=== PATIENT | male | born 1950 | race Asian ===

== ENCOUNTER 2021-03-01 13:25 | Inpatient (IN) | payer MEDICARE, OTHER ==
[~2021-03-01] VITALS: Ht 152.4 cm; Wt 54.4 kg
--- NOTE | 2021-03-01 13:27 | NUR ---
JASON Main FROM A DIALYSIS CENTER WHERE HE HAD A NEAR SYNCOPE EPISODE. PT PORT IS LOCATED ON HIS RIGHT CHEST. PT HAS A NASAL CANNULA BREATHING IS EVEN AND UNLABORED. PT ATTCHED TO MONITOR . DR VALERA AT BEDSIDE.
--- NOTE | 2021-03-01 14:31 | NUR ---
Ta kim in [facility] - 03/01/21 at 1518 by [facility] NURSING SUP CALLED FOR MIDLINE
[2021-03-01 14:34] LABS: BASOPHILS % (AUTO) 0.1 % (0.0-2.0); HEMATOCRIT 26 % (39-51); HEMOGLOBIN 8.7 g/dL (13.5-17.5); LYMPHOCYTES # (AUTO) 0.6 K/uL (0.8-4.8); LYMPHOCYTES % (AUTO) 5.5 % (20.0-44.0); MEAN CORPUSCULAR HGB CONC 33 g/dl (31.0-36.0); MEAN CORPUSCULAR VOLUME 98 fL (80-96); MONOCYTES # (AUTO) 1.1 K/uL (0.1-1.30); MONOCYTES % (AUTO) 9.5 % (2.0-12.0); NEUTROPHILS # (AUTO) 9.9 K/uL (1.8-8.9); NEUTROPHILS % (AUTO) 84.9 % (43.0-81.0); PLATELET COUNT (AUTO) 212 K/uL (150-450); WHITE BLOOD COUNT (AUTO) 11.7 K/uL (4.3-11.0)
--- NOTE | 2021-03-01 14:35 | NUR ---
PT TAKEN TO CT
[2021-03-01 14:45] LABS: CALCIUM, SERUM 8.1 mg/dL (8.5-10.1); CARBON DIOXIDE 32 mmol/L (21-32); CHLORIDE 98 mmol/L (98-107); CREATININE 5.3 mg/dL (0.6-1.3); GLUCOSE 204 mg/dL (74-106); SODIUM SERUM 140 mmol/L (136-145); UREA NITROGEN, BLOOD 61 mg/dL (7-18)
--- NOTE | 2021-03-01 14:51 | NUR ---
NURSING SUP CALLED FOR MIDLINE
[2021-03-01] MEDS ORDERED: NA P133E RC (14:55)
[2021-03-01] MEDS ORDERED: ONDA4TAB5 PO (14:55)
[2021-03-01] MEDS ORDERED: AMLO2.5T2 PO (14:55)
[2021-03-01] MEDS ORDERED: SODI650T PO (14:55)
[2021-03-01] MEDS ORDERED: POLY17PO4 PO (14:55)
[2021-03-01] MEDS ORDERED: ATOR10TA PO (14:55)
[2021-03-01] MEDS ORDERED: INSU100V11 SQ (14:55)
[2021-03-01] MEDS ORDERED: SENN-261 PO (14:55)
[2021-03-01] MEDS ORDERED: ACET-868 PO (14:55)
[2021-03-01] MEDS ORDERED: SEVE800T8 PO (14:55)
[2021-03-01] MEDS ORDERED: AMIN30LI2 PO (14:55)
[2021-03-01] MEDS ORDERED: FOLI0.8T2 PO (14:55)
[2021-03-01] MEDS ORDERED: ACET-2605 PO (14:55)
[2021-03-01] MEDS ORDERED: GABA-532 PO (14:55)
[2021-03-01] MEDS ORDERED: LACT10SO3 PO (14:55)
[2021-03-01] MEDS ORDERED: MELA3TAB41 PO (14:55)
[2021-03-01] MEDS ORDERED: PANT40TA2 PO (14:55)
[2021-03-01] MEDS ORDERED: CLOP75TA15 PO (14:55)
[2021-03-01] MEDS ORDERED: CHOL100062 PO (14:55)
[2021-03-01] MEDS ORDERED: INSU100V10 SQ (14:55)
[2021-03-01] MEDS ORDERED: GLUC1KIT IM (14:55)
[2021-03-01] MEDS ORDERED: TRAZ-182 PO (14:55)
[2021-03-01] MEDS ORDERED: DOXA2TAB2 PO (14:55)
[2021-03-01] MEDS ORDERED: HYDR-4075 PO (14:55)
[2021-03-01] MEDS ORDERED: NUT.237L67 PO (14:55)
[2021-03-01] MEDS ORDERED: CARV12.52 PO (14:55)
[2021-03-01] MEDS ORDERED: DEXT38GE12 PO (14:55)
[2021-03-01] MEDS ORDERED: HEPA50007 SQ (14:55)
[2021-03-01] MEDS ORDERED: DOCU-141 PO (14:55)
[2021-03-01] MEDS ORDERED: ASPI-1169 PO (14:55)
[2021-03-01] MEDS ORDERED: NITR0.4T48 SL (14:55)
[2021-03-01] MEDS ORDERED: VALS80TA2 PO (14:55)
[2021-03-01] MEDS ORDERED: FOLI0.4T6 PO (14:55)
[2021-03-01] MEDS ORDERED: IPRA3AMP23 IH (14:55)
[2021-03-01] MEDS ORDERED: BISA10SU11 RC (14:55)
[2021-03-01] MEDS ORDERED: MAGNESIUM HYDROXIDE 30 ML UDC PO PRN (18:00)
[2021-03-01] MEDS ORDERED: ONDANSETRON HCL/PF 4 MG/2 ML VIAL IVP PRN (18:00)
[2021-03-01] MEDS ORDERED: ACETAMINOPHEN 325 MG TABLET PO PRN (18:00)
[2021-03-01] MEDS ORDERED: MAG HYDROX/AL HYDROX/SIMETH 30 ML UDC PO PRN (18:00)
[2021-03-01] MEDS: SODIUM BICARBONATE 650 MG TABLET PO SCH ×2 (18:30→21:16)
[2021-03-01] MEDS: SEVELAMER CARBONATE 800 MG POWD.PACK PO SCH (18:30)
[2021-03-01] MEDS ORDERED: DEXTROSE 50%-WATER 50 ML DISP.SYRIN IV PRN (18:30)
[2021-03-01] MEDS: SENNOSIDES 8.6 MG TABLET PO SCH (18:30)
--- NOTE | 2021-03-01 18:37 | NUR ---
PT RESTING COMFORTABLY IN BED, EASY TO AROUSE.
--- NOTE | 2021-03-01 18:44 | NUR ---
REPORT GIVEN TO NURSE JUARES FOR ASHLEY
--- NOTE | 2021-03-01 18:50 | NUR ---
ULTRASOUND AT BEDSIDE
--- NOTE | 2021-03-01 19:11 | NUR ---
Ta kim in [facility] - 03/01/21 at 1911 by CAMILLE THE PATIENT IS TRANSFERED TO [facility] IN STABLE CONDITON AND PER ACLS POLICY.
[2021-03-01 20:00] VITALS: BP 160/73
--- NOTE | 2021-03-01 20:00 | NUR ---
METAL FABRICATING SHOP HELPER NOTES PT RECEIVED IN ROOM VIA [employer]. PT AWAKE A/O X 2-3 ABLE TO MAKE NEEDS KNOWN. PT NOTED WITH IV ACCESS ON THE LFA #20G.PT HAS RIGHT CHEST WALL HD ACCESS. PT ON 2L VIA NASAL CANNULA O2 SAT AT 99% NO RESPIRATORY DISTRESS NOTED AT THIS TIME. MO PAIN NOTED OR REPORTED AT THIS TIME. PT NOTED WITH BILATERAL LOWER EXTREMITY AMPUTATION. SKIN DRY WARM NO DISCOLORATION NOTED. SKIN ASSESSMENT DONE NO OPEN SKIN NOTED. PT BELONGINGS CHEKED NOTED PT HAS HIS OWN WHEEL CHAIR AT BEDSIDE WITH HIS BAG. PT ALS HAS A WATCH ON HIS LEFT WRIST ONE T SHIT AND A PAIR PANTS.PT ORIENTED TO ROOM AND UNIT. CALL LIGHT PLACED WITHIN REACH. WILL CONTINUE TO MONITOR. Addendum: 03/01/21 at 2318 by ENA EDWARDS RN PT NOW HAS SULLY MIDLINE 18G AND IS ON THE TELE MONITOR NSR 70S
--- NOTE | 2021-03-01 20:04 | NUR ---
PT TRANSFERRED TO 3W PER ACLS PROTOCOL.
[2021-03-01 20:10] VITALS: BP 150/72
[2021-03-01] MEDS: HEPARIN SODIUM, PORCINE 5000 UNITS/1 ML VIAL SQ SCH (21:00)
[2021-03-01] MEDS: CARVEDILOL 12.5 MG TABLET PO SCH (21:16)
[2021-03-01] MEDS: ATORVASTATIN 10 MG TABLET PO SCH (21:32)
[2021-03-01] MEDS: DOXAZOSIN MESYLATE (1 MG) 1 MG TABLET PO SCH (21:32)
[2021-03-01] MEDS: TRAZODONE 50 MG TABLET PO SCH (21:33)
[2021-03-01] MEDS: INSULIN REGULAR, HUMAN 100 UNIT/ML 3 ML VIAL SQ PRN (22:09)
[2021-03-01] MEDS: BLOOD SUGAR DIAGNOSTIC 1 EACH STRIP IN SCH (22:09)
--- NOTE | 2021-03-02 03:33 | NUR ---
television repair teacher notes pt trasnfered to [facility] per acls protocol. pt asleep easily woken up stable.
--- NOTE | 2021-03-02 03:40 | NUR ---
RN NOTES, RECEIVED PATIENT FROM 3 VIA BED ACCOMPANIED BY 3 [id number], AND INVESTIGATION DIVISION CAPTAIN, PT IN STABLE CONDITION AND VITAL SIGNS STABLE, PT WITH EDDI MIDLINE AND AND RIGHT AC IN PLACE PATENT AND INTACT, RCW HD CATHETER IN PLACE, WILL CONT TO MONITOR CLOSELY.
[2021-03-02 04:00] VITALS: BP 125/38
--- NOTE | 2021-03-02 05:00 | NUR ---
RN NOTES, COVID SWAB COLLECTED AND SENT IT TO LAB.
--- NOTE | 2021-03-02 07:19 | NUR ---
RN NOTES, PATIENT ASLEEP AROUSES TO VERBAL STIMULI, AT 1LPM VIA NC WITH O2 WNL, NO SOB/ACUTE DISTRESS NOTES, NO SIGNIFICANT CHANGE IN CONDITION DURING THE NIGHT, WITH EDDI MIDLINE AND AND RIGHT AC IN PLACE PATENT AND INTACT, RCW HD CATHETER IN PLACE, WILL ENDORSE CONTINUITY OF CARE TO ONCOMING NURSE.
--- NOTE | 2021-03-02 07:57 | NUR ---
RN OPENING NOTES RECEIVED PATIENT ASLEEP AROUSES TO VERBAL STIMULI. PATIENT ON 1L OF O2 VIA NC, NO SOB OR ANY DISTRESS NOTED. WITH EDDI MIDLINE AND AND RIGHT AC IN PLACE PATENT AND INTACT, RCW HD CATHETER IN PLACE. ALL SAFETY MEASURES IMPLEMENTED. BED LOCKED, ON LOWEST POSITION WITH SIDERAILS UP X 2. CALL LIGHT WITHIN REACH. WILL CONTINUE TO MONITOR.
[2021-03-02] MEDS: GABAPENTIN 300 MG CAPSULE PO SCH ×3 (08:19→16:12)
[2021-03-02] MEDS: VIT B CMPLX 3/FA/VIT C/BIOTIN 1 TAB TABLET PO SCH (08:19)
[2021-03-02] MEDS: SENNOSIDES 8.6 MG TABLET PO SCH ×2 (08:20→16:12)
[2021-03-02] MEDS: SEVELAMER CARBONATE 800 MG POWD.PACK PO SCH ×3 (08:20→18:06)
[2021-03-02] MEDS: VALSARTAN 80 MG TABLET PO SCH (08:20)
[2021-03-02] MEDS: ASPIRIN 81 MG TAB.CHEW PO SCH (08:21)
[2021-03-02] MEDS: CLOPIDOGREL BISULFATE 75 MG TABLET PO SCH (08:21)
[2021-03-02] MEDS: AMLODIPINE BESYLATE 2.5 MG TABLET PO SCH (08:21)
[2021-03-02] MEDS: SODIUM BICARBONATE 650 MG TABLET PO SCH ×4 (08:21→22:10)
[2021-03-02] MEDS: CARVEDILOL 12.5 MG TABLET PO SCH ×2 (08:22→16:14)
[2021-03-02] MEDS: CHOLECALCIFEROL 1,000 UNIT TABLET (VIT D3) PO SCH (08:22)
[2021-03-02] MEDS: HEPARIN SODIUM, PORCINE 5000 UNITS/1 ML VIAL SQ SCH ×2 (08:23→21:00)
[2021-03-02] MEDS: DOCUSATE SODIUM 100 MG CAPSULE PO SCH (08:24)
[2021-03-02] MEDS: PANTOPRAZOLE 40 MG TABLET.DR PO SCH (08:24)
[2021-03-02] MEDS: BLOOD SUGAR DIAGNOSTIC 1 EACH STRIP IN SCH ×4 (08:37→22:23)
[2021-03-02] MEDS: NEPRO VAN 237 ML CAN PO SCH (09:05)
[2021-03-02 09:25] LABS: BASOPHILS % (AUTO) 0.7 % (0.0-2.0); EOSINOPHILS % (AUTO) 0.7 % (0.0-6.0); HEMATOCRIT 22 % (39-51); HEMOGLOBIN 7.2 g/dL (13.5-17.5); MEAN CORPUSCULAR HGB CONC 34 g/dl (31.0-36.0); MEAN CORPUSCULAR VOLUME 99 fL (80-96); MONOCYTES # (AUTO) 0.6 K/uL (0.1-1.30); MONOCYTES % (AUTO) 10.4 % (2.0-12.0); NEUTROPHILS # (AUTO) 4.2 K/uL (1.8-8.9); NEUTROPHILS % (AUTO) 71.2 % (43.0-81.0); PLATELET COUNT (AUTO) 192 K/uL (150-450); RED BLOOD CELL COUNT(AUTO) 2.19 MIL/uL (4.5-6.0); WHITE BLOOD COUNT (AUTO) 5.8 K/uL (4.3-11.0)
[2021-03-02 10:08] LABS: CHOLESTEROL 139 mg/dL (<200); HDL CHOLESTEROL 41 mg/dL (40-60); LDL 56 mg/dL (0-99); TRIGLYCERIDES 380 mg/dL (30-150)
[2021-03-02] MEDS: INSULIN REGULAR, HUMAN 100 UNIT/ML 3 ML VIAL SQ PRN ×3 (12:44→22:25)
[2021-03-02] MEDS: EPOETIN ALFA-EPBX 10,000 UNIT/ML VIAL SQ SCH (15:07)
[2021-03-02 17:50] LABS: CALCIUM, SERUM 7.4 mg/dL (8.5-10.1); CARBON DIOXIDE 29 mmol/L (21-32); CHLORIDE 97 mmol/L (98-107); GLUCOSE 283 mg/dL (74-106); MAGNESIUM 2.4 mg/dL (1.8-2.4); POTASSIUM 4.4 mmol/L (3.5-5.1); SODIUM SERUM 138 mmol/L (136-145)
[2021-03-02 17:57] LABS: CREATININE 7.8 mg/dL (0.6-1.3); UREA NITROGEN, BLOOD 97 mg/dL (7-18)
--- NOTE | 2021-03-02 18:00 | NUR ---
RN NOTE NOTIFIED ALVARADO VILLAVICENCIO BUSINESS MACHINE OPERATOR OF CRITICAL LABS BUN 97 AND CREATININE 7.8
--- NOTE | 2021-03-02 18:34 | NUR ---
RN CLOSING NOTES PATIENT REMAINS IN STABLE CONDITION THROUGHOUT SHIFT. AT 1LPM VIA NC WITH O2 WNL, NO SOB OR RESPIRATORY DISTRESS NOTED. WITH EDDI MIDLINE AND AND RIGHT AC IN PLACE PATENT AND INTACT, RCW HD CATHETER IN PLACE. ALL DUE MEDS GIVEN, NO ADVERSE REACTIONS NOTED. KEPT DRY, CLEAN AND COMFORTABLE. ALL SAFETY MEASURES IN PLACE. BED LOCKED, IN LOWEST POSITION WITH SIDERAILS UP. CALL LIGHT WITHIN REACH. WILL ENDORSE TO ROTARY FURNACE OPERATOR NURSE FOR CONTINUITY OF CARE.
--- NOTE | 2021-03-02 19:45 | NUR ---
RN OPENING NOTES RECEIVED PATIENT IN BED ALERT, ORIENTED X3, VERBALLY RESPONSIVE. ON O2 1L/M VIA NC WITH O2 SAT 97%. NO SOB, NO CHEST CONGESTION, BREATHING EVEN AND UNLABORED. IV ACCESS ON EDDI MIDLINE AND AND RIGHT AC IN PLACE PATENT AND INTACT, NO S/S OF INFILTRATIONS. RT UPPER CHEST W/ PERMA CATH INTACT AND PATENT. NO BLEEDING. ALL SAFETY MEASURES IN PLACE. BED IN LOWEST POSITION AND LOCKED. SIDE RAILS UP. CALL LIGHT WITHIN REACH. WILL CONTINUE TO MONITOR FOR ANY CHANGES.
[2021-03-02 20:00] VITALS: BP 137/73
[2021-03-02] MEDS: ATORVASTATIN 10 MG TABLET PO SCH (22:10)
[2021-03-02] MEDS: DOXAZOSIN MESYLATE (1 MG) 1 MG TABLET PO SCH (22:11)
[2021-03-02] MEDS: TRAZODONE 50 MG TABLET PO SCH (22:11)
--- NOTE | 2021-03-02 22:30 | NUR ---
RN NOTES: BLOOD SUGAR 123. NO COVERAGE GIVEN. NO S/S OF HYPER/HYPOGLYCEMIA. WILL CONTINUE TO MONITOR
[2021-03-03] VITALS: BP 133/73
[2021-03-03] MEDS ORDERED: EPOETIN ALFA (10,000 UNIT) 10,000 UNIT/ML VIAL IV SCH
[2021-03-03 04:00] VITALS: BP 161/66
--- NOTE | 2021-03-03 06:46 | NUR ---
RN CLOSING NOTES PATIENT IN BED SLEEPING, BUT AROUSABLE, ALERT, ORIENTED X3, VERBALLY RESPONSIVE. ON O2 1L/M VIA NC WITH O2 SAT 95%. BREATHING EVEN AND UNLABORED. IV ACCESS ON EDDI MIDLINE AND AND RIGHT AC IN PLACE PATENT AND INTACT, NO S/S OF INFILTRATIONS. RT UPPER CHEST W/ HD CATH INTACT AND PATENT. NO BLEEDING NOTED. DUE MEDS GIVEN PER ORDER AND TOLERATED WELL. ALL SAFETY MEASURES IN PLACE. BED IN LOWEST POSITION AND LOCKED. SIDE RAILS UP. CALL LIGHT WITHIN REACH. WILL ENDORSE TO MORNING SHIFT NURSE.
[2021-03-03] MEDS: BLOOD SUGAR DIAGNOSTIC 1 EACH STRIP IN SCH ×4 (07:30→22:33)
--- NOTE | 2021-03-03 07:30 | NUR ---
RN OPENING NOTE PATIENT IN BED SLEEPING, BUT AROUSABLE, ALERT, ORIENTED X1, VERBALLY RESPONSIVE. ON O2 1L/M VIA NC WITH O2 SAT 95%. BREATHING EVEN AND UNLABORED. IV ACCESS ON EDDI MIDLINE AND AND RIGHT AC IN PLACE PATENT AND INTACT, NO S/S OF INFILTRATIONS. RT UPPER CHEST W/ HD CATH INTACT AND PATENT. NO BLEEDING NOTED. ALL SAFETY MEASURES IN PLACE. BED IN LOWEST POSITION AND LOCKED. SIDE RAILS UP. CALL LIGHT WITHIN REACH.
[2021-03-03 08:00] VITALS: BP 180/57
[2021-03-03] MEDS: VIT B CMPLX 3/FA/VIT C/BIOTIN 1 TAB TABLET PO SCH (08:34)
[2021-03-03] MEDS: CHOLECALCIFEROL 1,000 UNIT TABLET (VIT D3) PO SCH (08:34)
[2021-03-03] MEDS: DOCUSATE SODIUM 100 MG CAPSULE PO SCH (08:34)
[2021-03-03] MEDS: ASPIRIN 81 MG TAB.CHEW PO SCH (08:35)
[2021-03-03] MEDS: VALSARTAN 80 MG TABLET PO SCH (08:35)
[2021-03-03] MEDS: SEVELAMER CARBONATE 800 MG POWD.PACK PO SCH ×3 (08:35→17:19)
[2021-03-03] MEDS: GABAPENTIN 300 MG CAPSULE PO SCH ×3 (08:35→16:43)
[2021-03-03] MEDS: SENNOSIDES 8.6 MG TABLET PO SCH ×2 (08:35→16:43)
[2021-03-03] MEDS: AMLODIPINE BESYLATE 2.5 MG TABLET PO SCH (08:36)
[2021-03-03] MEDS: CLOPIDOGREL BISULFATE 75 MG TABLET PO SCH (08:36)
[2021-03-03] MEDS: CARVEDILOL 12.5 MG TABLET PO SCH ×2 (08:36→16:43)
[2021-03-03] MEDS: PANTOPRAZOLE 40 MG TABLET.DR PO SCH (08:36)
[2021-03-03] MEDS: SODIUM BICARBONATE 650 MG TABLET PO SCH ×4 (08:36→22:33)
[2021-03-03] MEDS: HEPARIN SODIUM, PORCINE 5000 UNITS/1 ML VIAL SQ SCH ×2 (08:39→22:38)
[2021-03-03] MEDS: NEPRO VAN 237 ML CAN PO SCH (08:41)
[2021-03-03] MEDS: INSULIN REGULAR, HUMAN 100 UNIT/ML 3 ML VIAL SQ PRN ×3 (12:20→22:37)
[2021-03-03] MEDS: EPOETIN ALFA-EPBX 10,000 UNIT/ML VIAL SQ SCH (15:08)
[2021-03-03 15:42] LABS: BASOPHILS % (AUTO) 0.1 % (0.0-2.0); EOSINOPHILS % (AUTO) 1.2 % (0.0-6.0); HEMATOCRIT 23 % (39-51); HEMOGLOBIN 7.7 g/dL (13.5-17.5); LYMPHOCYTES # (AUTO) 0.8 K/uL (0.8-4.8); MEAN CORPUSCULAR HGB CONC 34 g/dl (31.0-36.0); MEAN CORPUSCULAR VOLUME 99 fL (80-96); MONOCYTES # (AUTO) 0.5 K/uL (0.1-1.30); MONOCYTES % (AUTO) 5.5 % (2.0-12.0); NEUTROPHILS # (AUTO) 8.2 K/uL (1.8-8.9); NEUTROPHILS % (AUTO) 85.2 % (43.0-81.0); PLATELET COUNT (AUTO) 186 K/uL (150-450); WHITE BLOOD COUNT (AUTO) 9.6 K/uL (4.3-11.0)
[2021-03-03 16:00] VITALS: BP 170/58
--- NOTE | 2021-03-03 18:30 | NUR ---
RN NOTE PATIENT REFUSED TO HAVE BP TAKEN Addendum: 03/03/21 at 1831 by CUCO NOLAND RN Amended: Links added.
[2021-03-03 18:38] LABS: EOSINOPHILS % (MANUAL) 1 % (0-4); LYMPHOCYTES % (MANUAL) 9 % (16-48); MONOCYTES % (MANUAL) 2 % (0-11.0); NEUTROPHILS % (MANUAL) 88 (42-76)
--- NOTE | 2021-03-03 18:49 | NUR ---
RN CLOSING NOTE 111 PATIENT IS IN BED A/O X2 RESPONSE TO NAME. NO CURRENT COMPLAINTS OF SOB OR PAIN. MIHIR HAS 2 IV ACCESS THAT ARE INTACT RAC 20g AND SULLY MIDLINE 18G. PATIENT IS ON NC RUNNING AT 1 L AND O2 SAT ABOVE 95% THROUGH OUT SHIFT. ALL MEDS GIVEN THOROUGH OUT SHIFT AND NEEDS MET. SAFETY PROTOCOL IN PLACE, BED IN LOWEST POSITION AND LOCKED, CALL LIGHT WITHIN REACH WILL ENDORSE TO NIGHT NURSE FOR ASHLEY.
[2021-03-03] MEDS: IPRATROPIUM/ALBUTEROL INHALER IH SCH (19:30)
--- NOTE | 2021-03-03 19:30 | NUR ---
RN OPENING NOTES RECEIVED PATIENT IN BED, BOTH EYES CLOSED, BUT EASILY AROUSABLE ALERT, ORIENTED X3, VERBALLY RESPONSIVE. ON O2 1L/M VIA N/C. NO SOB, NO CHEST CONGESTION, BREATHING EVEN AND UNLABORED. IV ACCESS ON EDDI MIDLINE AND AND RIGHT AC IN PLACE PATENT AND INTACT, NO S/S OF INFILTRATIONS. RT UPPER CHEST W/ HD CATH INTACT AND PATENT. NO BLEEDING NOTED. NO S/S OF INFECTIONS NOTED. ALL SAFETY MEASURES IN PLACE. BED IN LOWEST POSITION AND LOCKED. 3X SIDE RAILS UP. PLACE CALL LIGHT WITHIN REACH. WILL CONTINUE TO MONITOR.
[2021-03-03 20:00] VITALS: BP 178/81
[2021-03-03] MEDS: TRAZODONE 50 MG TABLET PO SCH (22:35)
[2021-03-03] MEDS: DOXAZOSIN MESYLATE (1 MG) 1 MG TABLET PO SCH (22:35)
[2021-03-03] MEDS: ATORVASTATIN 10 MG TABLET PO SCH (22:35)
--- NOTE | 2021-03-03 22:39 | NUR ---
RN NOTES: BLOOD SUGAR 135. 2 NITS OF REGULAR INSULN GIVEN. NO S/S OF HYPER/HYPOGLYCEMIA. WILL CONTINUE TO MONITOR
[2021-03-04] MEDS: IPRATROPIUM/ALBUTEROL INHALER IH SCH ×3 (01:30→12:30)
[2021-03-04 04:00] VITALS: BP 179/78
[2021-03-04] MEDS ORDERED: hydrALAZINE HCL IV 20 MG VIAL IV PRN (05:30)
--- NOTE | 2021-03-04 05:36 | NUR ---
patient's blood pressure 179/78, pulse-75. notified Dr. Burgos. ordered hydralazine 10mg/0.5ml IV push PRN q 6hours if SBP <160. order noted and carried out. Med given as prn order and PT tolerated well. will continue to monitor
--- NOTE | 2021-03-04 06:45 | NUR ---
RN CLOSING NOTES PATIENT IN BED SITTING POSITION, ALERT, ORIENTED X2-3, VERBALLY RESPONSIVE. ON ROOM AIR, O2 SAT 98%. NO SOB, NO CHEST CONGESTION, BREATHING EVEN AND UNLABORED. IV ACCESS ON EDDI MIDLINE AND AND RIGHT AC IN PLACE PATENT AND INTACT, NO S/S OF INFILTRATIONS. RT UPPER CHEST W/ HD CATH INTACT AND PATENT. NO BLEEDING NOTED. HEMODIALYSIS DONE YESTERDAY AT 2200. 2L OUTPUT. PT AT THIS MOMENT TRIED TO GET UP FROM THE BED W/O ANY ASSIST. ORDER BILATERAL SOFT RESTRAINT ORDER TO PREVENT INJURY. ORDER NOTED AND CARRIED OUT. PT STRONGLY REFUSED TO APPLY THE RESTRAINTS. WILL CLOSELY MONITOR. ALL DUE MEDS GIVEN PER ORDER. NO S/S OF HYPER/HYPOTENSION. TO ALL SAFETY MEASURES IN PLACE. BED IN LOWEST POSITION AND LOCKED. 3X SIDE RAILS UP. PLACE CALL LIGHT WITHIN REACH. WILL ENDORSE TO MORNING SHIFT NURSE. .
[2021-03-04] MEDS: PANTOPRAZOLE 40 MG TABLET.DR PO SCH ×2 (07:30→08:17)
--- NOTE | 2021-03-04 07:47 | NUR ---
RN OPENING NOTE PATIENT RECEIVED IN BED, RESTING. PATIENT ON ROOM AIR WITH NO SIGNS OF LABORED BREATHING AT THIS TIME. RIGHT AC 20G AND LEFT UA MIDLINE IN PLACE. BED LOCKED AND IN LOWEST POSITION, CALL LIGHT WITHIN REACH, 3 SIDE RAILS UP. NO SIGNS OF DISTRESS NOTED AT THIS TIME. WILL CONTINUE TO MONITOR.
--- NOTE | 2021-03-04 07:59 | NUR ---
PER [facility] COVID NEGATIVE.
[2021-03-04 08:00] VITALS: BP 167/62
[2021-03-04] MEDS: SEVELAMER CARBONATE 800 MG POWD.PACK PO SCH ×4 (08:00→17:28)
[2021-03-04] MEDS: BLOOD SUGAR DIAGNOSTIC 1 EACH STRIP IN SCH ×4 (08:03→22:02)
[2021-03-04] MEDS: CHOLECALCIFEROL 1,000 UNIT TABLET (VIT D3) PO SCH ×2 (08:16→08:34)
[2021-03-04] MEDS: CARVEDILOL 12.5 MG TABLET PO SCH ×3 (08:16→16:06)
[2021-03-04] MEDS: DOCUSATE SODIUM 100 MG CAPSULE PO SCH ×2 (08:16→08:33)
[2021-03-04] MEDS: AMLODIPINE BESYLATE 2.5 MG TABLET PO SCH ×2 (08:17→08:34)
[2021-03-04] MEDS: SENNOSIDES 8.6 MG TABLET PO SCH ×3 (08:17→16:06)
[2021-03-04] MEDS: CLOPIDOGREL BISULFATE 75 MG TABLET PO SCH ×2 (08:17→08:34)
[2021-03-04] MEDS: ASPIRIN 81 MG TAB.CHEW PO SCH ×2 (08:17→08:33)
[2021-03-04] MEDS: GABAPENTIN 300 MG CAPSULE PO SCH ×4 (08:17→16:05)
[2021-03-04] MEDS: NEPRO VAN 237 ML CAN PO SCH (08:18)
[2021-03-04] MEDS: VIT B CMPLX 3/FA/VIT C/BIOTIN 1 TAB TABLET PO SCH ×2 (08:18→08:34)
[2021-03-04] MEDS: SODIUM BICARBONATE 650 MG TABLET PO SCH ×5 (08:18→21:08)
[2021-03-04] MEDS: VALSARTAN 80 MG TABLET PO SCH ×2 (08:18→08:34)
[2021-03-04] MEDS: HEPARIN SODIUM, PORCINE 5000 UNITS/1 ML VIAL SQ SCH ×3 (08:20→21:27)
[2021-03-04 11:16] LABS: ABG BASE EXCESS 0.9 mmol/L; ABG OXYGEN SATURATION 95.7 % (92.0-98.5); ABG PCO2 33.3 mmHg (35.0-45.0); ABG PH 7.479 (7.350-7.450); ABG PO2 82.3 mmHg (75.0-100.0); AaDO2 27.6 mmHg; COHb 0.7 % (0.5-1.5); MetHb 0.3 % (0.0-1.5); O2Hb 94.7 % (94.0-97.0); SITE, ABG Left Radial; VENT MODE, BG ROOM AIR
[2021-03-04] MEDS: hydrALAZINE HCL 50 MG TABLET PO SCH ×2 (12:22→16:05)
[2021-03-04] MEDS: INSULIN REGULAR, HUMAN 100 UNIT/ML 3 ML VIAL SQ PRN ×2 (12:24→22:08)
[2021-03-04] MEDS ORDERED: LORAZEPAM INJ 2 MG/ML VIAL IV ONE (14:30)
--- NOTE | 2021-03-04 14:35 | NUR ---
RN NOTE PATIENT AGITATED, TRYING TO GET OUT OF BED. ONE TIME ORDER FOR ATIVAN GIVEN. VITAL SIGNS STABLE. WILL CONTINUE TO MONITOR.
[2021-03-04 16:00] VITALS: BP 142/52
--- NOTE | 2021-03-04 16:08 | NUR ---
RN NOTE EPOETIN ONIEL HELD PER PHARMACY ORDER, PENDING HEW N&H. PATIENT REFUSED LABS EARLIER TODAY, WILL TRY AGAIN THIS AFTERNOON. WILL CONTINUE TO MONITOR.
--- NOTE | 2021-03-04 17:03 | NUR ---
RN NOTE PATIENT RELAXED, WATCHING TV, VITAL SIGNS STABLE. LABS POSTPONED UNTIL LATER TODAY. WILL CONTINUE TO MONITOR.
--- NOTE | 2021-03-04 18:57 | NUR ---
RN CLOSING NOTE PATIENT REMAINS IN BED, AWAKE, A&OX3. PATIENT ON ROOM AIR WITH NO SIGNS OF LABORED BREATHING AT THIS TIME. RIGHT AC 20G AND LEFT UA MIDLINE IN PLACE. BED LOCKED AND IN LOWEST POSITION, CALL LIGHT WITHIN REACH, 3 SIDE RAILS UP. ALL NEEDS ATTENDED DURING SHIFT. NO SIGNS OF DISTRESS NOTED AT THIS TIME. WILL ENDORSE TO NEUROLOGY TECHNICIAN NURSE.
--- NOTE | 2021-03-04 19:30 | NUR ---
MONORAIL CRANE OPERATOR OPENING NOTES: RECEIVED PATIENT FROM DAY SHIFT, PATIENT IN BED, A/O X3-4, ON ROOM AIR, SATURATING 98%, R. AC #20 PATENT AND INTACT, L. UA MIDLINE #18 PATENT AND INTACT, NO SIGNS OF DISTRESS, NO SOB, BED LOCKED AND IN POSITION, SIDE RAILS UP X2, BED AT LOWEST POSITION, CALL LIGHT WITHIN REACH, WILL CONTINUE TO MONITOR AND ADMINISTER NURSING INTERVENTIONS NECESSARY.
[2021-03-04] MEDS: TRAZODONE 50 MG TABLET PO SCH (21:06)
[2021-03-04] MEDS: ATORVASTATIN 10 MG TABLET PO SCH (21:07)
[2021-03-04] MEDS: DOXAZOSIN MESYLATE (1 MG) 1 MG TABLET PO SCH (21:08)
[2021-03-05] VITALS: BP 112/45
--- NOTE | 2021-03-05 06:40 | NUR ---
PASSENGER LOCOMOTIVE ENGINEER CLOSING NOTES: PATIENT IN BED, A/O X4, ON ROOM AIR, SATURATING 98%, IV SITE R. AC #20 PATENT AND INTACT, L UA MIDLINE #18 PATENT AND INTACT. NO SIGNS OF SOB, NO DISTRESS NOTED, BED AT LOWEST POSITION, SIDE RAILS UP X2, BRAKES LOCKED AND IN POSITION, CALL LIGHT WITHIN REACH. WILL CONTINUE TO MONITOR AND ENDORSE TO DAY SHIFT NURSE.
--- NOTE | 2021-03-05 07:30 | NUR ---
RN OPENING NOTE PATIENT RECEIVED IN BED, RESTING. PATIENT ON ROOM AIR WITH NO SIGNS OF LABORED BREATHING AT THIS TIME. RIGHT AC 20G AND LEFT UA MIDLINE IN PLACE. SAFETY MEASURES RENDERED. BED LOCKED AND IN LOWEST POSITION, CALL LIGHT WITHIN REACH, 3 SIDE RAILS UP. NO SIGNS OF DISTRESS NOTED AT THIS TIME. WILL CONTINUE TO MONITOR.
--- NOTE | 2021-03-05 07:35 | NUR ---
RN NOTES 0730 AM INSULIN NOT GIVEN. BLOOD SUGAR 128.
[2021-03-05] MEDS: PANTOPRAZOLE 40 MG TABLET.DR PO SCH (07:47)
[2021-03-05] MEDS: BLOOD SUGAR DIAGNOSTIC 1 EACH STRIP IN SCH ×3 (07:47→17:30)
[2021-03-05] MEDS: SEVELAMER CARBONATE 800 MG POWD.PACK PO SCH ×3 (07:48→17:32)
[2021-03-05 08:00] VITALS: BP 132/56
[2021-03-05] MEDS: INSULIN REGULAR, HUMAN 100 UNIT/ML 3 ML VIAL SQ PRN ×3 (08:19→17:49)
[2021-03-05] MEDS ORDERED: AMLODIPINE BESYLATE 10 MG TABLET PO SCH (09:00)
[2021-03-05] MEDS: GABAPENTIN 300 MG CAPSULE PO SCH ×3 (09:09→16:32)
[2021-03-05] MEDS: DOCUSATE SODIUM 100 MG CAPSULE PO SCH (09:09)
[2021-03-05] MEDS: VIT B CMPLX 3/FA/VIT C/BIOTIN 1 TAB TABLET PO SCH (09:09)
[2021-03-05] MEDS: ASPIRIN 81 MG TAB.CHEW PO SCH (09:09)
[2021-03-05] MEDS: VALSARTAN 80 MG TABLET PO SCH (09:10)
[2021-03-05] MEDS: hydrALAZINE HCL 50 MG TABLET PO SCH ×3 (09:10→16:21)
[2021-03-05] MEDS: SODIUM BICARBONATE 650 MG TABLET PO SCH (09:11)
[2021-03-05] MEDS: CHOLECALCIFEROL 1,000 UNIT TABLET (VIT D3) PO SCH (09:11)
[2021-03-05] MEDS: CLOPIDOGREL BISULFATE 75 MG TABLET PO SCH (09:11)
[2021-03-05] MEDS: SENNOSIDES 8.6 MG TABLET PO SCH ×2 (09:11→16:32)
[2021-03-05] MEDS: CARVEDILOL 12.5 MG TABLET PO SCH ×2 (09:12→16:24)
[2021-03-05] MEDS: HEPARIN SODIUM, PORCINE 5000 UNITS/1 ML VIAL SQ SCH ×2 (09:14→21:39)
[2021-03-05] MEDS: NEPRO VAN 237 ML CAN PO SCH (09:15)
[2021-03-05 16:00] VITALS: BP 103/49
--- NOTE | 2021-03-05 16:22 | NUR ---
HELD HYDRALAZINE DUE TO PT BP 103/49 AND PT. CURRENTLY DOING DIALYSIS TREATMENT.
[2021-03-05 16:24] VITALS: BP 103/49
--- NOTE | 2021-03-05 16:24 | NUR ---
RN NOTES HELD COREG DUE TO PT BP 103/49 AND PT CURRENTLY IN DIALYSIS TREATMENT.
--- NOTE | 2021-03-05 19:08 | NUR ---
RN CLOSING NOTES PATIENT IN BED, A/O X4, ON ROOM AIR, SATURATING 98%, IV SITE R. AC #20 PATENT AND INTACT, L UA MIDLINE #18 PATENT AND INTACT. NO SIGNS OF SOB, NO DISTRESS NOTED, BED AT LOWEST POSITION, SIDE RAILS UP X2, BRAKES LOCKED AND IN POSITION, CALL LIGHT WITHIN REACH. WILL CONTINUE TO MONITOR AND ENDORSE TO OPTICAL INSTRUMENT ASSEMBLER NURSE.
--- NOTE | 2021-03-05 19:40 | NUR ---
RN NOTES RECEIVED REPORT FROM MORNING RN PATIENT IN BED A/OX4. NO SOB NOT IN DISTRESS. WITH OXYGEN INHALATION AT 3LMP VIA NC TOLERATING WELL SATING 97%. WITH SULLY MIDLINE PATENT FLUSHES WELL WITH . R PERMACATH INTACT NO REDNESS NO INFILTRATION NOTED. PATIENT S/P HEMODIALYSIS TODAY WITH 1 L REMOVED. ALL DUE MEDS GIVEN ORDERED. PATIENT IS L MARQUITA AND R AKA. ALL NEEDS ATTENDED. FOR DC TODAY AT @9PM.
--- NOTE | 2021-03-05 21:40 | NUR ---
RN NOTES 2 EMT'S CAME. REPORT GIVEN. PAPER WORKS HANDED. ALL BELONGINGS GIVEN. ENDORSED. SAFELY TRANSFER TO [facility] PATIENT STILL ON STABLE CONDITION VITAL SIGNS BP 140/68, HR 82, TEMP 98.9 O2SAT 96%.
--- NOTE | 2021-03-05 22:00 | NUR ---
RN NOTES PATIENT LEFT THE FACILITY WITH 2 EMT'S. PATIENT IS STABLE CONDITION.
[2021-03-17] MEDS ORDERED: AMLO-213 PO (09:56)
[2021-03-17] MEDS ORDERED: LEVO250T59 PO (09:56)
[2021-03-17] MEDS ORDERED: PRED20TA PO (09:56)
[2021-03-17] MEDS ORDERED: IPRA3AMP23 IH (09:56)
[2021-03-17] MEDS ORDERED: HYDR-4077 PO (10:06)
== END 2021-03-05 22:58 | DRG 312 ==
LOC: ER 13:28 → TELE 19:01 → TELE1 03-02 03:47 → MEDSG1 03-03 10:10
PROVIDERS: ADMIT Nurse Practitioner Acute Care
PROC: 05HA33Z Insertion of Infusion Device into Left Brachial Vein, Percutaneous Approach (ICD-10-PCS; principal; 2021-03-01)
DX: I95.3 Hypotension of hemodialysis (principal); N18.6 End stage renal disease; G92.8 Other toxic encephalopathy; D68.59 Other primary thrombophilia; I12.0 Hypertensive chronic kidney disease with stage 5 chronic kidney disease or end stage renal disease; Z86.73 Personal history of transient ischemic attack (TIA), and cerebral infarction without residual deficits; I25.10 Atherosclerotic heart disease of native coronary artery without angina pectoris; E11.22 Type 2 diabetes mellitus with diabetic chronic kidney disease; Z99.2 Dependence on renal dialysis; D72.829 Elevated white blood cell count, unspecified; D63.8 Anemia in other chronic diseases classified elsewhere; Z74.01 Bed confinement status; I67.2 Cerebral atherosclerosis; Z89.512 Acquired absence of left leg below knee; Z89.611 Acquired absence of right leg above knee
CPT/HCPCS: 36415; 36600; 70450-TC; 71045-TC; 80048-TC; 80061-TC; 82803-TC; 82962-TC; 83735-TC; 84100-TC; 84484-TC; 85025-TC; 85610-TC; 85730-TC; 86706; 87081-TC; 87340; 90935-TC; 93307-TC; 97112-TC; 97530-TC; G0378; J0360; J0885; J1644; J1815; J2060; J7030; U0003

== ENCOUNTER 2021-03-13 19:30 | Inpatient (IN) | payer OTHER ==
[~2021-03-13] VITALS: Ht 149.9 cm; Wt 61.7 kg
[~2021-03-13 19:30] MED LIST: ACET-2605 PO; ACET-868 PO; AMIN30LI2 PO; AMLO2.5T2 PO; ASPI-1169 PO; ATOR10TA PO; BISA10SU11 RC; CARV12.52 PO; CHOL100062 PO; CLOP75TA15 PO; DEXT38GE12 PO; DOCU-141 PO; DOXA2TAB2 PO; FOLI0.4T6 PO; FOLI0.8T2 PO; GABA-532 PO; GLUC1KIT IM; HEPA50007 SQ; HYDR-4075 PO; INSU100V10 SQ; INSU100V11 SQ; IPRA3AMP23 IH; LACT10SO3 PO; MELA3TAB41 PO; NA P133E RC; NITR0.4T48 SL; NUT.237L67 PO; ONDA4TAB5 PO; PANT40TA2 PO; POLY17PO4 PO; SENN-261 PO; SEVE800T8 PO; SODI650T PO; TRAZ-182 PO; VALS80TA2 PO
--- NOTE | 2021-03-13 19:32 | NUR ---
PT BIBRA 60 FROM SNF C/O MAURI DESAT AT 60% RA. UPON TRIAGE PT ON O2 15LPM VIA NRB SATTING AT 70%. RT AT PT'S BEDSIDE. RCW HD CATH INTACT. EDDI HD AV FISTULA NOTED. CONNECTED PT TO POX AND MONITOR.
[2021-03-13] MEDS ORDERED: methylPREDNISolone SOD SUCC 125 MG/2ML VIAL IV ONE (20:00)
[2021-03-13] MEDS ORDERED: IPRATROPIUM NEB FS 0.5 MG/2.5 ML AMPUL.NEB NEB ONE (20:00)
[2021-03-13] MEDS ORDERED: ALBUTEROL FS 2.5 MG/3 ML VIAL.NEB NEB ONE ×2 (20:00→21:30)
--- NOTE | 2021-03-13 20:13 | NUR ---
ABG result not transferring to [facility]. ABG result: PH 7.36 pCO2 49 pO2 72.1 HCO3 27.5 BE 1.8 ABG taken immediately after being placed on BIPAP 15/5, rate18, FIO2 100%
--- NOTE | 2021-03-13 20:20 | NUR ---
RT AT PT'S BEDSIDE FOR ABG. PT ON BIPAP TOLERATING SETTINGS WELL AT 100%: IPAP 15 / EPAP 5 FIO2 100%
[2021-03-13] MEDS ORDERED: ALBUTEROL FS 2.5 MG/3 ML VIAL.NEB ONE (20:23)
[2021-03-13] MEDS ORDERED: IPRATROPIUM NEB FS 0.5 MG/2.5 ML AMPUL.NEB ONE (20:23)
--- NOTE | 2021-03-13 20:24 | NUR ---
COVID AND INFLUENZA SWAB COLLECTED AND SENT TO LAB
--- NOTE | 2021-03-13 20:25 | NUR ---
ZOEY #20G S/L. BLOOD COLLECTED AND SENT TO LAB
--- NOTE | 2021-03-13 20:30 | NUR ---
MASTIC SPRAYER AT PT'S BEDSIDE
[2021-03-13 20:44] LABS: BASOPHILS # (AUTO) 0.1 K/uL (0.0-0.2); BASOPHILS % (AUTO) 0.9 % (0.0-2.0); EOSINOPHILS % (AUTO) 10.4 % (0.0-6.0); HEMATOCRIT 26 % (39-51); HEMOGLOBIN 8.4 g/dL (13.5-17.5); LYMPHOCYTES # (AUTO) 0.8 K/uL (0.8-4.8); LYMPHOCYTES % (AUTO) 8.9 % (20.0-44.0); MEAN CORPUSCULAR HGB CONC 32 g/dl (31.0-36.0); MEAN CORPUSCULAR VOLUME 101 fL (80-96); MONOCYTES # (AUTO) 0.4 K/uL (0.1-1.30); MONOCYTES % (AUTO) 4.2 % (2.0-12.0); NEUTROPHILS # (AUTO) 6.9 K/uL (1.8-8.9); NEUTROPHILS % (AUTO) 75.6 % (43.0-81.0); PLATELET COUNT (AUTO) 298 K/uL (150-450); RED BLOOD CELL COUNT(AUTO) 2.56 MIL/uL (4.5-6.0); WHITE BLOOD COUNT (AUTO) 9.2 K/uL (4.3-11.0)
--- NOTE | 2021-03-13 21:00 | NUR ---
FIO2 50% TOLERATING BIPAP WELL AT 50%
[2021-03-13 21:02] LABS: CALCIUM, SERUM 7.6 mg/dL (8.5-10.1); CARBON DIOXIDE 29 mmol/L (21-32); CHLORIDE 92 mmol/L (98-107); CREATININE 6.7 mg/dL (0.6-1.3); GLUCOSE 251 mg/dL (74-106); POTASSIUM 5.5 mmol/L (3.5-5.1); SODIUM SERUM 134 mmol/L (136-145); UREA NITROGEN, BLOOD 59 mg/dL (7-18)
[2021-03-13] MEDS ORDERED: methylPREDNISolone SOD SUCC 125 MG/2ML VIAL ONE (21:03)
[2021-03-13 21:14] LABS: ALANINE AMINOTRANSFERASE 23 U/L (12-78); ALBUMIN 3.2 g/dL (3.4-5.0); ALKALINE PHOSPHATASE 81 U/L (46-116); ASPARTATE AMINOTRANSFERASE 14 U/L (15-37); BILIRUBIN,DIRECT 0.1 mg/dL (0.0-0.2); BILIRUBIN,TOTAL 0.2 mg/dL (0.2-1.0)
[2021-03-13] MEDS ORDERED: DEXTROSE 50%-WATER 50 ML DISP.SYRIN IV ONE (21:30)
[2021-03-13] MEDS ORDERED: CALCIUM CHLORIDE 1,000 MG/10 ML DISP.SYRIN IV ONE (21:30)
[2021-03-13] MEDS ORDERED: INSULIN REGULAR, HUMAN 100 UNIT/ML 10 ML VIAL IV ONE (21:30)
[2021-03-13 21:41] LABS: BAND % (MANUAL) 1 % (0.0-5.0); EOSINOPHILS % (MANUAL) 15 % (0-4); LYMPHOCYTES % (MANUAL) 8 % (16-48); MONOCYTES % (MANUAL) 4 % (0-11.0); NEUTROPHILS % (MANUAL) 72 (42-76)
--- NOTE | 2021-03-13 21:43 | NUR ---
MRSA SWAB COLLECTED AND SENT TO LAB. PATIENT'S BELONGINGS LIST DONE.
--- NOTE | 2021-03-13 21:47 | NUR ---
PAGED EPIC NUTRITIONAL ASSISTANT
--- NOTE | 2021-03-13 22:16 | NUR ---
SPOKE WITH ENA FROM [facility] FOR CLINICAL INFORMATION.
--- NOTE | 2021-03-13 23:05 | NUR ---
DR. HAIR OPN THE PHONE WITH JUAN AMBROCIO
[2021-03-14] VITALS (24 sets, daily range): BP systolic 122–168; BP diastolic 54–83
--- NOTE | 2021-03-14 01:23 | NUR ---
ASSIGNED TO 257
--- NOTE | 2021-03-14 01:43 | NUR ---
REPORT GIVEN TO MARIA M SHANKER OUT FOR ASHLEY
--- NOTE | 2021-03-14 01:58 | NUR ---
COVID SWAB COLLECTED
--- NOTE | 2021-03-14 02:49 | NUR ---
pt being transported to unit on [facility] with emt, rt and rn bedside.
[2021-03-14] MEDS ORDERED: CLONIDINE HCL 0.1 MG TABLET PO PRN (03:00)
[2021-03-14] MEDS ORDERED: DEXTROSE 50%-WATER 50 ML DISP.SYRIN IV PRN (03:00)
--- NOTE | 2021-03-14 03:00 | NUR ---
RN ADMITTING NOTE 0300 - RECEIVED PATIENT FROM ER VIA GURNEY ACCOMPANIED BY 2 ER STAFF AND TRANSFERRED TO BED VIA 2 PERSON ASSIST. PT IS AO X 4, IN NO SIGN OF ACUTE DISTRESS, RESPIRATIONS EVEN AND UNLABORED, SATURATION AT 99% ON 8LPM VIA SIMPLE MASK. COMPREHENSIVE PHYSICAL ASSESSMENT AND PATIENT CARE DONE. NO SKIN ISSUES NOTED. NOTED IV LINE AT LAC 20G, PATENT AND FLUSHING WELL, AND HD CATH AT R CHEST, NO S/S OF INFECTION NOTED. NOTED BLE AMPUTATED. ALL BELONGINGS CHECKED. SAFETY MEASURES AND ISOLATION PRECAUTION IN PLACE, CALL LIGHT WITHIN REACH OF PATIENT, BED ON LOWEST POSITION, SIDE RAILS UP X 2. WILL CONTINUE MONITOR AND ASSESS THROUGHOUT THE SHIFT. WILL CARRY OUT MD ORDERS ACCORDINGLY. WIRE PREPARATION MACHINE TENDER MADE AWARE.
[2021-03-14] MEDS ORDERED: CEFTRIAXONE 1 G VIAL ONE (03:31)
[2021-03-14] MEDS: CEFTRIAXONE 1 G in IV D5W 50 ML IV SCH (03:33)
[2021-03-14] MEDS: FUROSEMIDE 40 MG/4 ML VIAL IV SCH ×4 (03:33→15:33)
[2021-03-14] MEDS ORDERED: BISACODYL SUPP (10 MG) 10 MG/SUPP.RECT SUPP.RECT RC PRN (04:00)
[2021-03-14] MEDS ORDERED: ACETAMINOPHEN 325 MG TABLET PO PRN (04:00)
[2021-03-14] MEDS: ALBUTEROL FS 2.5 MG/3 ML VIAL.NEB NEB SCH ×5 (04:00→19:30)
[2021-03-14] MEDS ORDERED: hydrALAZINE HCL 10 MG TABLET PO PRN (04:00)
[2021-03-14] MEDS: IPRATROPIUM NEB FS 0.5 MG/2.5 ML AMPUL.NEB NEB SCH ×5 (04:00→19:30)
[2021-03-14] MEDS ORDERED: AZITHROMYCIN 500 MG VIAL ONE (04:05)
--- NOTE | 2021-03-14 04:06 | NUR ---
RN NOTE PATIENT IS AAO X 4, PER PT, HE WISHES TO BE FULL CODE, RN FURNITURE DELIVERY DRIVER WITNESS.
--- NOTE | 2021-03-14 04:13 | NUR ---
RT Note Pt HHN TX not given due to covid PCR results pending.
[2021-03-14] MEDS: AZITHROMYCIN 500 MG in IV D5W 250 ML IV SCH (04:22)
[2021-03-14] MEDS ORDERED: BLOOD SUGAR DIAGNOSTIC 1 EACH STRIP IN SCH (07:30)
--- NOTE | 2021-03-14 08:00 | NUR ---
rn notes received patient in the bed sleeping, on simple mask 6l, patient has no acute respiratory distress, vss, , bs-135 mg/dl, , patient has amputated BLE , but able to turn and reposition self in the bed. call light within to reach, ECHO is done. will follow up.
--- NOTE | 2021-03-14 08:50 | NUR ---
RECEIVED REPORT FROM . WILL CONTINUE WITH PLAN OF CARE.
--- NOTE | 2021-03-14 08:58 | NUR ---
PT'S H/H IS LOW, DR BELLO MADE AWARE AT THIS TIME, HE ASKED TO HOLD THE HEPARIN. WILL CONTINUE WITH PLAN OF CARE.
[2021-03-14] MEDS: HEPARIN SODIUM, PORCINE 5000 UNITS/1 ML VIAL SQ SCH ×2 (09:00→21:00)
[2021-03-14 09:12] LABS: BASOPHILS % (AUTO) 0.1 % (0.0-2.0); EOSINOPHILS % (AUTO) 0.1 % (0.0-6.0); HEMATOCRIT 21 % (39-51); LYMPHOCYTES # (AUTO) 0.6 K/uL (0.8-4.8); LYMPHOCYTES % (AUTO) 7.1 % (20.0-44.0); MEAN CORPUSCULAR HGB CONC 33 g/dl (31.0-36.0); MEAN CORPUSCULAR VOLUME 99 fL (80-96); MONOCYTES # (AUTO) 0.1 K/uL (0.1-1.30); MONOCYTES % (AUTO) 1.2 % (2.0-12.0); NEUTROPHILS # (AUTO) 8.1 K/uL (1.8-8.9); NEUTROPHILS % (AUTO) 91.5 % (43.0-81.0); PLATELET COUNT (AUTO) 252 K/uL (150-450); RED BLOOD CELL COUNT(AUTO) 2.12 MIL/uL (4.5-6.0); WHITE BLOOD COUNT (AUTO) 8.8 K/uL (4.3-11.0)
[2021-03-14 09:28] LABS: CALCIUM, SERUM 8.2 mg/dL (8.5-10.1); CARBON DIOXIDE 27 mmol/L (21-32); CHLORIDE 94 mmol/L (98-107); CREATININE 7.3 mg/dL (0.6-1.3); GLUCOSE 158 mg/dL (74-106); POTASSIUM 5.1 mmol/L (3.5-5.1); SODIUM SERUM 134 mmol/L (136-145); UREA NITROGEN, BLOOD 70 mg/dL (7-18)
--- NOTE | 2021-03-14 09:30 | NUR ---
rn notes seen patent via hospitalist Dr Frederick and get order to transfer patient to the [facility], get critical augustin hgb 7.0 get order to administer one units of RBC. order taken and carried out.
[2021-03-14] MEDS: PANTOPRAZOLE 40 MG TABLET.DR PO SCH (09:40)
[2021-03-14] MEDS: BLOOD SUGAR DIAGNOSTIC 1 EACH STRIP VI SCH ×4 (09:41→21:54)
[2021-03-14] MEDS: FOLIC ACID 1 MG TABLET PO SCH (09:51)
[2021-03-14] MEDS: ASPIRIN 81 MG TAB.CHEW PO SCH (09:51)
[2021-03-14] MEDS: DOCUSATE SODIUM 100 MG CAPSULE PO SCH (09:51)
[2021-03-14] MEDS: AMLODIPINE BESYLATE 2.5 MG TABLET PO SCH (09:52)
[2021-03-14] MEDS: GABAPENTIN 300 MG CAPSULE PO SCH ×3 (09:52→16:31)
--- NOTE | 2021-03-14 09:54 | NUR ---
rn notes held heparin because of low hgl 7.0
[2021-03-14 10:08] LABS: IRON, SERUM 32 ug/dl (50-175); TOTAL IRON BINDING CAPACITY 231 ug/dl (250-450)
[2021-03-14] MEDS: INSULIN REGULAR, HUMAN 100 UNIT/ML 3 ML VIAL SQ PRN ×2 (10:11→12:25)
[2021-03-14 10:13] LABS: C-REACTIVE PROTEIN < 0.2 mg/dL (0.0-0.9)
--- NOTE | 2021-03-14 10:22 | NUR ---
rn notes patient refused Lasix Lnjection, Dr Langford aware of.
[2021-03-14 10:37] LABS: ABG BASE EXCESS 1.8 mmol/L; ABG OXYGEN SATURATION 93.7 % (92.0-98.5); ABG PH 7.367 (7.350-7.450); ABG PO2 72.1 mmHg (75.0-100.0); AaDO2 591.9 mmHg; COHb 4.5 % (0.5-1.5); MetHb 0.3 % (0.0-1.5); O2Hb 89.2 % (94.0-97.0); SITE, ABG Left Radial
[2021-03-14 10:48] LABS: ABG BASE EXCESS 2.4 mmol/L; ABG OXYGEN SATURATION 93.3 % (92.0-98.5); ABG PCO2 39.1 mmHg (35.0-45.0); ABG PO2 69.2 mmHg (75.0-100.0); AaDO2 207.2 mmHg; COHb 0.9 % (0.5-1.5); MetHb 0.3 % (0.0-1.5); O2Hb 92.2 % (94.0-97.0); SITE, ABG Left Radial; VENT MODE, BG 6L SIMPLE MASK
--- NOTE | 2021-03-14 11:00 | NUR ---
rn notes patient transferred to the [facility] bedside report given rn follow plan of care.
--- NOTE | 2021-03-14 11:00 | NUR ---
RN NOTE received report from icu nurse, patient in the bed A/Ox4, on simple mask 6l, patient has no acute respiratory distress , patient has amputated BLE , but able to turn and reposition self in the bed. observed safety measures, call light within to reach, bed in low position and lock, will samira.
--- NOTE | 2021-03-14 14:17 | NUR ---
RN NOTE PT COMPLAIN OF SOB, O2 SAT IS 88, NOTIFIED THE CHARGE NURSE SOON AND DUNIA RN, AND RT, PUT THE PT ON NON REBREATHER 15 LITER, O2SAT WENT TO 98%, HR 98, BP 155/82, RR 22, PT VERBALIZE THAT HE IS FEELING BETTER.
--- NOTE | 2021-03-14 15:09 | NUR ---
RN NOTE CALL LAB AND FOLLOW UP FOR CBC, TALKED TO JORDAN, STILL PENDING AT THIS TIME.
--- NOTE | 2021-03-14 15:30 | NUR ---
RN NOTE CALL DR PRYOR AND REPORT THE PT DISTRESS AND SOB, AND REPORT BUN OF 70 AND CREAT 7.3, DR PRYOR REQUST TO INFORM DR FONSECA, KETTLE COOK.
--- NOTE | 2021-03-14 15:38 | NUR ---
RN NOTE CALL THE PHARMACY AND TALKED TO FOREST, AND GOT THE APPROVAL TO GIVE THE LASIX AT 1535, UE THE PT IS SOB AND ON DISTRESS, CHARGE NURSE SOON IS AWARE.
[2021-03-14 16:33] LABS: ABG BASE EXCESS 1.5 mmol/L; ABG OXYGEN SATURATION 99.4 % (92.0-98.5); ABG PCO2 41.6 mmHg (35.0-45.0); ABG PH 7.417 (7.350-7.450); ABG PO2 209.9 mmHg (75.0-100.0); AaDO2 461.5 mmHg; COHb 1.1 % (0.5-1.5); MetHb 0.3 % (0.0-1.5); SITE, ABG Left Radial; VENT MODE, BG non rebreather
--- NOTE | 2021-03-14 16:43 | NUR ---
RN NOTE LIZETTE HOLT AND RT DWIGHT TITRATE OXYGEN TO 4L ON SIMPLE MASK, NO DISTRESS NOTED, O2 SAT IS 94%. Addendum: 03/14/21 at 1754 by MITZI JOHNSON RN NASAL HAILY
--- NOTE | 2021-03-14 16:46 | NUR ---
pt. is awake and alert decreased oxygen flow from 15 lpm non rebreather to 4 lpm o2 flow via nasal cannula due to 14% SPO2 and 209 PAO2. RN NOTIFIED ON CHANGES MADE. Addendum: 03/14/21 at 1648 by DWIGHT MARCANO RT Amended: Links added.
--- NOTE | 2021-03-14 18:46 | NUR ---
RN note patient remain in the bed A/Ox4, on NC 4l, patient has no acute respiratory distress at this time, HOB elevated, o2sat monitor at bed side saturating 92%, hd nurse at bed side,HD and blood transfusion consent was signed by pt. call lab for blood transfusion. blood is not ready at this time, patient has amputated BLE , but able to turn and reposition self in the bed. observed safety measures, call light within reach, bed in low position and lock, will WILL ENDURSE TO NOC SIFT.
[2021-03-14] MEDS: ATORVASTATIN 10 MG TABLET PO SCH (21:52)
[2021-03-14] MEDS: DOXAZOSIN MESYLATE (1 MG) 1 MG TABLET PO SCH (21:53)
[2021-03-14] MEDS: TRAZODONE 50 MG TABLET PO SCH (21:54)
[2021-03-14] MEDS: *INSULIN REGULAR(HUMULIN R)HUM 100 UNIT/ML VIAL SQ PRN (21:55)
[2021-03-15] VITALS (11 sets, daily range): BP systolic 129–163; BP diastolic 56–76
[2021-03-15] MEDS: IPRATROPIUM NEB FS 0.5 MG/2.5 ML AMPUL.NEB NEB SCH ×4 (01:30→19:30)
[2021-03-15] MEDS: ALBUTEROL FS 2.5 MG/3 ML VIAL.NEB NEB SCH ×4 (01:30→19:30)
[2021-03-15] MEDS: CEFTRIAXONE 1 G in IV D5W 50 ML IV SCH (03:40)
[2021-03-15] MEDS: AZITHROMYCIN 500 MG in IV D5W 250 ML IV SCH (04:12)
--- NOTE | 2021-03-15 06:30 | NUR ---
RN CLOSING NOTE PT REMAINED STABLE THROUGHOUT SHIFT. WILL ENDORSE TO AM RN FOR ASHLEY.
--- NOTE | 2021-03-15 07:28 | NUR ---
RT HHN tx not given due to pending PCR, no SOB or respiratory distress noted.
--- NOTE | 2021-03-15 07:59 | NUR ---
RN NOTE Pt received in bed awake, alert and oriented x4, on simple mask 8L ,sat 90%, patient has no acute respiratory distress or sob at this time, patient has amputated BLE , but able to turn and reposition self in the bed. External jugular #20 patent and flushing well, safety measures in place, call light within reach, bed in lowest position and locked, will follow up laboratory results for possible transfusion and continue to monitor
[2021-03-15] MEDS: BLOOD SUGAR DIAGNOSTIC 1 EACH STRIP VI SCH ×4 (08:25→21:43)
[2021-03-15 08:36] LABS: CALCIUM, SERUM 8.4 mg/dL (8.5-10.1); CARBON DIOXIDE 29 mmol/L (21-32); CHLORIDE 92 mmol/L (98-107); CREATININE 5.6 mg/dL (0.6-1.3); GLUCOSE 129 mg/dL (74-106); MAGNESIUM 2.3 mg/dL (1.8-2.4); PHOSPHORUS 3.4 mg/dL (2.5-4.9); POTASSIUM 4.7 mmol/L (3.5-5.1); SODIUM SERUM 131 mmol/L (136-145); UREA NITROGEN, BLOOD 47 mg/dL (7-18)
[2021-03-15 08:46] LABS: BASOPHILS % (AUTO) 0.2 % (0.0-2.0); EOSINOPHILS % (AUTO) 5.4 % (0.0-6.0); LYMPHOCYTES # (AUTO) 0.8 K/uL (0.8-4.8); LYMPHOCYTES % (AUTO) 9.1 % (20.0-44.0); MEAN CORPUSCULAR HGB CONC 34 g/dl (31.0-36.0); MEAN CORPUSCULAR VOLUME 99 fL (80-96); MONOCYTES # (AUTO) 0.6 K/uL (0.1-1.30); MONOCYTES % (AUTO) 6.3 % (2.0-12.0); PLATELET COUNT (AUTO) 227 K/uL (150-450); RED BLOOD CELL COUNT(AUTO) 2.04 MIL/uL (4.5-6.0); WHITE BLOOD COUNT (AUTO) 8.8 K/uL (4.3-11.0)
[2021-03-15 08:49] LABS: HEMATOCRIT 20 % (39-51)
[2021-03-15 08:50] LABS: HEMOGLOBIN 6.8 g/dL (13.5-17.5)
[2021-03-15] MEDS: ASPIRIN 81 MG TAB.CHEW PO SCH (09:00)
[2021-03-15] MEDS: HEPARIN SODIUM, PORCINE 5000 UNITS/1 ML VIAL SQ SCH ×2 (09:00→21:00)
[2021-03-15] MEDS: FERROUS SULFATE (325 MG) 325 MG/TAB TABLET PO SCH ×2 (09:16→16:34)
[2021-03-15] MEDS: PANTOPRAZOLE 40 MG TABLET.DR PO SCH (09:16)
[2021-03-15] MEDS: DOCUSATE SODIUM 100 MG CAPSULE PO SCH (09:16)
[2021-03-15] MEDS: AMLODIPINE BESYLATE 2.5 MG TABLET PO SCH (09:16)
[2021-03-15] MEDS: FUROSEMIDE 40 MG/4 ML VIAL IV SCH ×2 (09:16→16:34)
[2021-03-15] MEDS: FOLIC ACID 1 MG TABLET PO SCH (09:16)
[2021-03-15] MEDS: GABAPENTIN 300 MG CAPSULE PO SCH ×3 (09:16→16:34)
--- NOTE | 2021-03-15 09:21 | NUR ---
RN NOTE HEPARIN AND ASPIRIN HOLD HEMOGLOBIN 6.8
[2021-03-15 11:31] LABS: FERRITIN 1839 ng/mL (8-388); THYROID STIMULATING HORMONE 1.566 uIU/mL (0.358-3.74)
--- NOTE | 2021-03-15 12:00 | NUR ---
RN NOTE WAITING FOR LABORATORY TO CAMPUS SUPERVISOR THE BLOOD
[2021-03-15] MEDS: methylPREDNISolone SOD SUCC 40 MG/ML VIAL IV SCH ×2 (12:18→21:41)
[2021-03-15] MEDS: INSULIN REGULAR, HUMAN 100 UNIT/ML 3 ML VIAL SQ PRN ×2 (12:19→17:36)
--- NOTE | 2021-03-15 15:00 | NUR ---
RN NOTE CALLED LABORATORY AGAIN STILL NO BLOOD READY YET WILL NOTIFY THE DOC
--- NOTE | 2021-03-15 17:30 | NUR ---
RN NOTE BLOOD TRANSFUSION RUNNING NO ADVERSE EFFECT NOTED, VITAL SIGN WITHIN NORMAL LIMITS WILL KEEP MONITORING,
--- NOTE | 2021-03-15 18:45 | NUR ---
RN NOTE Pt remains in bed awake, alert and oriented x4, on simple mask 6L ,sat 98%, patient has no acute respiratory distress or sob at this time, breathing even and unlabored, patient has amputated BLE , but able to turn and reposition self in the bed. External jugular #20 patent and flushing well, running RBC 110cc/hr tolerating well, vital sign within normal limits, safety measures in place, call light within reach, bed in lowest position and locked, will endorse to associate media directorplant operator/shift supervisor
--- NOTE | 2021-03-15 19:43 | NUR ---
RN NOTE RECEIVED PATIENT IN BED, AWAKE, ALERT, AND VERBALLY RESPONSIVE. AOX4. ABLE TO MAKE NEEDS KNOWN. BREATHING EVEN AND UNLABORED AT THIS TIME. ON OXYGEN 5L VIA SIMPLE MASK. TOLERATING WELL. DENIES CHEST PAIN AT THIS TIME. ON TELE MONITORING, SINUS RHYTHM. SKIN WARM AND DRY. NOTED WITH LEFT EXTERNAL JUGULAR PERIPHERAL IV 20G. RUNNING 1 UNIT PRBC AT 110 MLS/HR. NO INFILTRATION NOTED. TOLERATING WELL.. NOTED WITH BLE AMPUTATION. BED LOW, IN LOCKED POSITION. CALL LIGHT WITHIN REACH. Addendum: 03/15/21 at 2240 by MIGUEL MILLER RN ALSO NOTED WITH RIGHT UPPER CHEST HD ACCESS. NO BLEEDING NOTED.
--- NOTE | 2021-03-15 20:35 | NUR ---
RN NOTE 1 UNIT PRBC TRANSFUSED. NO ADVERSE REACTION NOTED. WILL CONTINUE TO MONITOR. CALL LIGHT WITHIN REACH.
[2021-03-15] MEDS: DOXAZOSIN MESYLATE (1 MG) 1 MG TABLET PO SCH (21:41)
[2021-03-15] MEDS: ATORVASTATIN 10 MG TABLET PO SCH (21:41)
[2021-03-15] MEDS: *INSULIN REGULAR(HUMULIN R)HUM 100 UNIT/ML VIAL SQ PRN (21:42)
[2021-03-15] MEDS: TRAZODONE 50 MG TABLET PO SCH (21:42)
--- NOTE | 2021-03-15 21:52 | NUR ---
RN NOTE HEPARIN HELD, HEMOGLOBIN LEVEL OF 6.8.
--- NOTE | 2021-03-15 22:30 | NUR ---
RN NOTE PATIENT STATES FEELING SHORTNESS OF BREATH. OXYGEN SATURATION RANGING FROM 90-91 PERCENT ON 5L/MIN VIA SIMPLE MASK. INCREASED OXYGEN TO 7L/MIN VIA SIMPLE MASK. OXYGEN SATURATION INCREASED TO 95-96 PERCENT. PATIENTS STATES HE BECAME SOB WHEN HE WAS FIXING HIS BLANKETS. HOB ELEVATED AT THIS TIME. WILL CONTINUE TO MONITOR. CALL LIGHT WITHIN REACH.
--- NOTE | 2021-03-15 23:39 | NUR ---
RN NOTE PATIENT HAVING DIFFICULTY BREATHING ON SIMPLE MASK 7L/MIN. SATURATION OF 92 PERCENT. PATIENT PLACED ON NON-REBREATHER MASK AT 15L/MIN. SATURATION AT THIS TIME 97 PERCENT. PATIENT APPEARS VERY CONGESTED AND IS DIAPHORETIC. DENIES CHEST PAIN. SINUS TACHYCARDIA AT THIS TIME AT 120 BPM. NOTIFIED CARINA AMBROCIO, PER SYLVIA AMBROCIO TO DO STAT ABG AND STAT CHEST X-RAY AT THIS TIME. NOTED AND CARRIED OUT. PATIENT HOB ELEVATED HIGH-FOWLERS. CALL LIGHT WITHIN REACH.
--- NOTE | 2021-03-15 23:57 | NUR ---
RN NOTE EKG DONE DONE BY RT. SINUS TACHYCARDIA. RHYTHM STRIP FILED IN PATIENTS FOLDER.
[2021-03-16] VITALS (11 sets, daily range): BP systolic 101–167; BP diastolic 58–90
[2021-03-16 00:04] LABS: ABG BASE EXCESS -2.8 mmol/L; ABG OXYGEN SATURATION 98.2 % (92.0-98.5); ABG PCO2 45.5 mmHg (35.0-45.0); ABG PH 7.325 (7.350-7.450); ABG PO2 131.4 mmHg (75.0-100.0); AaDO2 536.1 mmHg; COHb 0.5 % (0.5-1.5); MetHb 0.3 % (0.0-1.5); O2Hb 97.4 % (94.0-97.0); SITE, ABG Left Radial
[2021-03-16] MEDS ORDERED: EPOETIN ALFA (10,000 UNIT) 10,000 UNIT/ML VIAL IV SCH (00:30)
--- NOTE | 2021-03-16 00:49 | NUR ---
RN NOTE PATIENT REQUESTING TO SWITCH TO SIMPLE MASK. SIMPLE MASK APPLIED AT OXYGEN 10 L/MIN. TOLERATING WELL 100 PERCENT SATURATION AT THIS TIME.
[2021-03-16] MEDS: ALBUTEROL FS 2.5 MG/3 ML VIAL.NEB NEB SCH ×4 (01:30→19:30)
[2021-03-16] MEDS: IPRATROPIUM NEB FS 0.5 MG/2.5 ML AMPUL.NEB NEB SCH ×4 (01:30→19:30)
[2021-03-16] MEDS: CEFTRIAXONE 1 G in IV D5W 50 ML IV SCH (02:49)
[2021-03-16] MEDS: methylPREDNISolone SOD SUCC 40 MG/ML VIAL IV SCH ×3 (04:01→20:53)
[2021-03-16] MEDS: AZITHROMYCIN 500 MG in IV D5W 250 ML IV SCH (04:01)
[2021-03-16 06:38] LABS: BASOPHILS % (AUTO) 0.2 % (0.0-2.0); HEMATOCRIT 22 % (39-51); HEMOGLOBIN 7.6 g/dL (13.5-17.5); LYMPHOCYTES # (AUTO) 0.4 K/uL (0.8-4.8); LYMPHOCYTES % (AUTO) 4.7 % (20.0-44.0); MEAN CORPUSCULAR HGB CONC 34 g/dl (31.0-36.0); MEAN CORPUSCULAR VOLUME 97 fL (80-96); MONOCYTES # (AUTO) 0.1 K/uL (0.1-1.30); MONOCYTES % (AUTO) 1.7 % (2.0-12.0); NEUTROPHILS # (AUTO) 7.7 K/uL (1.8-8.9); NEUTROPHILS % (AUTO) 93.4 % (43.0-81.0); PLATELET COUNT (AUTO) 194 K/uL (150-450); RED BLOOD CELL COUNT(AUTO) 2.28 MIL/uL (4.5-6.0); WHITE BLOOD COUNT (AUTO) 8.2 K/uL (4.3-11.0)
[2021-03-16 06:59] LABS: CALCIUM, SERUM 8.2 mg/dL (8.5-10.1); CARBON DIOXIDE 24 mmol/L (21-32); CHLORIDE 89 mmol/L (98-107); GLUCOSE 202 mg/dL (74-106); POTASSIUM 5.4 mmol/L (3.5-5.1); SODIUM SERUM 128 mmol/L (136-145); UREA NITROGEN, BLOOD 64 mg/dL (7-18)
--- NOTE | 2021-03-16 07:33 | NUR ---
RT HHN tx not given due to pending PCR, no respiratory distress noted.
--- NOTE | 2021-03-16 08:00 | NUR ---
RN NOTE PATIENT IN BED WITH SLIGHT HAVING DIFFICULTY BREATHING ON SIMPLE MASK 6L/MIN. SATURATION OF 98% PATIENT IN BED , ALERT ORIENTED, ON TELE MONITOR SR HR 86, LT EJ HL INTACT AND FLUSHED WELL , BED IN LOWEST AND LOWEST CONDITION , CALL LIGHT WITHIN REACH WILL MONITOR
[2021-03-16] MEDS: PANTOPRAZOLE 40 MG TABLET.DR PO SCH (08:29)
[2021-03-16] MEDS: GABAPENTIN 300 MG CAPSULE PO SCH ×3 (08:29→17:02)
[2021-03-16] MEDS: FUROSEMIDE 40 MG/4 ML VIAL IV SCH ×2 (08:29→17:02)
[2021-03-16] MEDS: FERROUS SULFATE (325 MG) 325 MG/TAB TABLET PO SCH ×2 (08:29→17:02)
[2021-03-16] MEDS: ASPIRIN 81 MG TAB.CHEW PO SCH (08:29)
[2021-03-16] MEDS: DOCUSATE SODIUM 100 MG CAPSULE PO SCH (08:29)
[2021-03-16] MEDS: FOLIC ACID 1 MG TABLET PO SCH (08:30)
[2021-03-16] MEDS: AMLODIPINE BESYLATE 2.5 MG TABLET PO SCH (08:30)
[2021-03-16] MEDS: BLOOD SUGAR DIAGNOSTIC 1 EACH STRIP VI SCH ×4 (08:30→21:32)
[2021-03-16] MEDS: INSULIN REGULAR, HUMAN 100 UNIT/ML 3 ML VIAL SQ PRN ×3 (08:31→17:45)
[2021-03-16] MEDS: HEPARIN SODIUM, PORCINE 5000 UNITS/1 ML VIAL SQ SCH ×2 (08:41→20:59)
--- NOTE | 2021-03-16 08:42 | NUR ---
telegraphic typewriter operator note hold heparin now 7.6 will report to
--- NOTE | 2021-03-16 13:15 | NUR ---
television news producer note dr cisse notified that heparin hold due to hg 7.6 also notified that patient is congested stated that will check it out
--- NOTE | 2021-03-16 13:15 | NUR ---
telephone order clerk room service note hd started as ordered per dr tanna salas to give 1 unit prbc with hd m aware that hg today 7.6
--- NOTE | 2021-03-16 14:29 | NUR ---
tele rnnote 1 unit prbc complected by hd nurse no adverse reaction noted, will f\u
--- NOTE | 2021-03-16 14:51 | NUR ---
telecom specialist note cont on hd at this time ,all needs attended will f\u
--- NOTE | 2021-03-16 15:54 | NUR ---
regional telecommunications specialist note hd completed, 1l out bp 166/74
--- NOTE | 2021-03-16 16:54 | NUR ---
TOP LIFTER NOTE CHANGED TO 6L NC ,SATURATION 96% WILL MONITOR CLOSELY
--- NOTE | 2021-03-16 18:38 | NUR ---
SALES SUPPORT ASSISTANT NOTE PATIENT IN BED , ALERT , ORIENTED , CHANGED TO 5L NC ,SATURATION 97% AT THIS TIME, ON TELE MONITOR SR HR 88, LT EJ HL IN PLACE AND FLUSHED SWELL , BED IN LOWEST AND LOCKED POSITION , NO SOB NOTED AT THIS TIME, WILL CONT TO MONITOR CLOSELY , CALL LIGHT WITHIN REACH
--- NOTE | 2021-03-16 19:46 | NUR ---
RN OPENING NOTES, RECEIVED PATIENT IN BED, AWAKE, ALERT, ORIENTED X4, AND VERBALLY RESPONSIVE. ABLE TO MAKE NEEDS KNOWN. BREATHING EVEN AND UNLABORED . ON O2 6L/MIN VIA N/C, O2 SAT 96%. AND TOLERATING WELL. DENIES ANY PAIN OR DISCOMFORT. NO ACUTE DISTRESS. ON TELE MONITORING, SINUS RHYTHM. NOTED WITH LEFT EXTERNAL JUGULAR PERIPHERAL IV 20G. NO INFILTRATION NOTED. ALL SAFETY MEASURE IN PLACE. BED IN LOW POSITION AND LOCKED POSITION. CALL LIGHT WITHIN REACH. WILL CONTINUE TO MONITOR
[2021-03-16] MEDS: DOXAZOSIN MESYLATE (1 MG) 1 MG TABLET PO SCH (21:17)
[2021-03-16] MEDS: TRAZODONE 50 MG TABLET PO SCH (21:18)
[2021-03-16] MEDS: ATORVASTATIN 10 MG TABLET PO SCH (21:18)
[2021-03-16] MEDS: *INSULIN REGULAR(HUMULIN R)HUM 100 UNIT/ML VIAL SQ PRN (21:37)
--- NOTE | 2021-03-16 21:38 | NUR ---
RN NOTES: BLOOD SUGAR 197, 3 UNITS OF REGULAR INSULIN GIVEN PER SLIDING SCALE. NO S/S OF HYPER/HYPOGLYCEMIA. WILL CONTINUE TO MONITOR
[2021-03-17] VITALS: BP 157/77
[2021-03-17] MEDS: ALBUTEROL FS 2.5 MG/3 ML VIAL.NEB NEB SCH ×3 (01:03→13:30)
[2021-03-17] MEDS: IPRATROPIUM NEB FS 0.5 MG/2.5 ML AMPUL.NEB NEB SCH ×3 (01:03→13:30)
[2021-03-17] MEDS: CEFTRIAXONE 1 G in IV D5W 50 ML IV SCH (02:30)
[2021-03-17 04:00] VITALS: BP 158/66
[2021-03-17] MEDS: methylPREDNISolone SOD SUCC 40 MG/ML VIAL IV SCH (05:23)
--- NOTE | 2021-03-17 06:46 | NUR ---
RN CLOSING NOTES, PATIENT IN BED SLEEPING BUT EASILY AROUSABLE, ALERT, ORIENTED X4, AND VERBALLY RESPONSIVE. ABLE TO MAKE NEEDS KNOWN. NO SOB, NO CHEST CONGESTION, BREATHING EVEN AND UNLABORED . ON O2 6L/MIN VIA N/C, O2 SAT 100%. DENIES ANY PAIN OR DISCOMFORT. NO ACUTE DISTRESS. ON TELE MONITORING, SINUS RHYTHM. IV ACCESS ON LEFT EXTERNAL JUGULAR PERIPHERAL IV# 20G. NO S/S INFILTRATION NOTED. ALL DUE MEDS GIVEN AND PT TOLERATED WELL. ALL SAFETY MEASURE IN PLACE. BED IN LOW POSITION AND LOCKED POSITION. CALL LIGHT WITHIN REACH. WILL ENDORSE TO MORNING SHIFT NURSE.
--- NOTE | 2021-03-17 07:24 | NUR ---
RN OPENING NOTE RECEIVE REPORT FROM [employer] T[employer] HELPER NURSE. PATIENT IN STABLE CONDITION WITH NO SIGN OF DISTRESS. RESTING COMFORTABLY IN BED. ON 6L/MIN NC. O2 SAT 98%. WILL TITRATE OXYGEN TOLERATED. A/O X4. ON PUREED DIET BUT ABLE TO SWALLOW PILLS WHOLE. PROPER ISOLATION PRECAUTION IN PLACE. ALL SAFETY MEASURE IN PLACE. BED ON LOWEST POSITION WITH HOB ELEVATED AND 3 SIDE RAIL UP. CALL LIGHT WITHIN REACH. WILL CONTINUE TO MONITOR.
[2021-03-17] MEDS: BLOOD SUGAR DIAGNOSTIC 1 EACH STRIP VI SCH ×2 (07:44→12:09)
[2021-03-17] MEDS: PANTOPRAZOLE 40 MG TABLET.DR PO SCH (07:49)
[2021-03-17] MEDS: INSULIN REGULAR, HUMAN 100 UNIT/ML 3 ML VIAL SQ PRN (07:50)
[2021-03-17 08:00] VITALS: BP 176/79
[2021-03-17] MEDS ORDERED: AZITHROMYCIN 250 MG TABLET PO SCH (08:00)
[2021-03-17] MEDS: ASPIRIN 81 MG TAB.CHEW PO SCH (08:38)
[2021-03-17] MEDS: FOLIC ACID 1 MG TABLET PO SCH (08:39)
[2021-03-17] MEDS: GABAPENTIN 300 MG CAPSULE PO SCH ×2 (08:39→12:40)
[2021-03-17] MEDS: DOCUSATE SODIUM 100 MG CAPSULE PO SCH (08:39)
[2021-03-17] MEDS: FUROSEMIDE 40 MG/4 ML VIAL IV SCH (08:39)
[2021-03-17] MEDS: FERROUS SULFATE (325 MG) 325 MG/TAB TABLET PO SCH (08:39)
[2021-03-17] MEDS: HEPARIN SODIUM, PORCINE 5000 UNITS/1 ML VIAL SQ SCH (08:42)
[2021-03-17] MEDS ORDERED: AMLODIPINE BESYLATE 10 MG TABLET PO SCH (09:00)
[2021-03-17] MEDS ORDERED: IPRA3AMP23 IH (09:56)
[2021-03-17] MEDS ORDERED: AMLO-213 PO (09:56)
[2021-03-17] MEDS ORDERED: LEVO250T59 PO (09:56)
[2021-03-17] MEDS ORDERED: PRED20TA PO (09:56)
[2021-03-17] MEDS ORDERED: HYDR-4077 PO (10:06)
[2021-03-17] MEDS: hydrALAZINE HCL 50 MG TABLET PO SCH ×2 (10:30→15:20)
--- NOTE | 2021-03-17 11:26 | NUR ---
RN NOTE HYDRALAZINE NON-ADMINISTER. PATIENT GETTING HEMODIALYSIS.
--- NOTE | 2021-03-17 11:40 | NUR ---
per [facility] covid negative.
[2021-03-17 12:00] VITALS: BP 184/89
--- NOTE | 2021-03-17 12:06 | NUR ---
faxed copy of negative pcr to [email or web address] ambulance pickup.
--- NOTE | 2021-03-17 15:36 | NUR ---
REPORT GIVEN TO [facility].
[2021-03-17 15:39] VITALS: BP 169/78
--- NOTE | 2021-03-17 16:50 | NUR ---
RN NOTE PATIENT HAVE BEEN CHANCERY CLERK BY AMBULANCE. REPORT WAS GIVEN. PATIENT IN STABLE CONDITION AT TIME OF DISCHARGE. BLOOD PRESSURE OF 148/67 HEAR RATE OF 85, O2 SAT 95%. IV WAS REMOVED, PRESSURE WAS HELD, PRESSURE DRESSING WAS PLACED. HEMOSTASIS ACHIEVED AT IV SITE. PERMANENT WAVER WAS REMOVED.
[2021-03-17] MEDS ORDERED: methylPREDNISolone SOD SUCC 40 MG/ML VIAL IV SCH (17:00)
== END 2021-03-17 16:40 | DRG 189 ==
LOC: ER 19:44 → ICU 03-14 02:06 → TELE1 03-14 11:04
PROVIDERS: ADMIT Internal Medicine; ATTEND Internal Medicine
PROC: 5A09357 Assistance with Respiratory Ventilation, Less than 24 Consecutive Hours, Continuous Positive Airway Pressure (ICD-10-PCS; 2021-03-13)
PROC: 5A1D70Z Performance of Urinary Filtration, Intermittent, Less than 6 Hours Per Day (ICD-10-PCS; principal; 2021-03-14)
PROC: 30233N1 Transfusion of Nonautologous Red Blood Cells into Peripheral Vein, Percutaneous Approach (ICD-10-PCS; 2021-03-14)
DX: J81.0 Acute pulmonary edema (principal); J96.01 Acute respiratory failure with hypoxia; N18.6 End stage renal disease; I21.4 Non-ST elevation (NSTEMI) myocardial infarction; I12.0 Hypertensive chronic kidney disease with stage 5 chronic kidney disease or end stage renal disease; Z79.02 Long term (current) use of antithrombotics/antiplatelets; J44.9 Chronic obstructive pulmonary disease, unspecified; E11.22 Type 2 diabetes mellitus with diabetic chronic kidney disease; Z99.2 Dependence on renal dialysis; D63.8 Anemia in other chronic diseases classified elsewhere; Z20.822 Contact with and (suspected) exposure to COVID-19; Z79.51 Long term (current) use of inhaled steroids; Z79.01 Long term (current) use of anticoagulants; Z79.4 Long term (current) use of insulin; Z79.82 Long term (current) use of aspirin; Z79.899 Other long term (current) drug therapy; Z89.512 Acquired absence of left leg below knee; Z89.511 Acquired absence of right leg below knee; F17.200 Nicotine dependence, unspecified, uncomplicated; E11.51 Type 2 diabetes mellitus with diabetic peripheral angiopathy without gangrene; E78.5 Hyperlipidemia, unspecified; E87.5 Hyperkalemia; E87.70 Fluid overload, unspecified; F39 Unspecified mood [affective] disorder; I27.20 Pulmonary hypertension, unspecified; I34.0 Nonrheumatic mitral (valve) insufficiency
CPT/HCPCS: 36415; 36600; 71045-TC; 80048-TC; 80076-TC; 82728-TC; 82803-TC; 82962-TC; 83540-TC; 83735-TC; 83880; 83970; 84100-TC; 84443-TC; 84484-TC; 85025-TC; 85378-TC; 86140-TC; 86706; 86850-TC; 87081-TC; 87340; 90935-TC; 93307-TC; 94799-TC; C9803; G0378; J0456; J0696; J1644; J1815; J1940; J2920; J2930; J3490; J7030; J7050; J7060; P9016; U0003